=== PATIENT | male | born 1970 | race American Indian/Alaskan Native ===

== ENCOUNTER 2016-11-06 09:42 | Emergency (ER) | payer MEDICAID ==
[2016-11-06 09:57] VITALS: BP 129/88
--- NOTE | 2016-11-06 11:28 | Emergency Department Report ---
HPI - General Chief Complaint: Upper Respiratory Infection Time Seen by Provider: 11/06/16 11:08 - HPI HPI: Patient here reported flulike symptoms times one week. She said that she has had nonproductive cough lack of appetite and fever, chills achy and congestion. Patient reports sinus pain and pressure and says she's been taking over-the- counter NyQuil and TheraFlu without any relief. Post the cough is worse when she lay down at night. Generalized aching at 8 out of 10. Denies any shortness of breath or chest pain. ED Past Medical Hx - Past Medical History Previous Medical History?: Yes Hx Hypertension: Yes Hx GERD: Yes Hx Psychiatric Treatment: Yes (DEPRESSION) - Surgical History Past Surgical History?: No - Family History Family history: hypertension - Social History Smoking Status: Never Smoker Substance Use Type: None - Medications Home Medications: Home Medications Medication Instructions Recorded Confirmed Last Taken Type Amoxicillin [Amoxicillin TAB] 875 mg PO BID #14 tablet 11/06/16 Unknown Rx Brompheniramine/Pseudoephed/Dm 10 ml PO BID PRN #100 ml 11/06/16 Unknown Rx [Bromfed Dm Cough Syrup] Fluticasone [Flonase] 1 spray NS QDAY #1 bottle 11/06/16 Unknown Rx Loratadine [Claritin] 10 mg PO DAILY #10 tablet 11/06/16 Unknown Rx ED Review of Systems ROS: Stated complaint: FLU SYMPTOMS/CONGESTION/FEVER Other details as noted in HPI Comment: All other systems reviewed and negative Constitutional: chills, fever Eyes: denies: eye pain, eye discharge ENT: congestion. denies: ear pain, throat pain Respiratory: cough. denies: shortness of breath, SOB with exertion, SOB at rest , stridor, wheezing Cardiovascular: denies: chest pain, palpitations, edema, syncope Gastrointestinal: denies: abdominal pain, nausea, vomiting Musculoskeletal: arthralgia. denies: back pain Skin: denies: rash Neurological: denies: headache, weakness, numbness, paresthesias, abnormal gait , vertigo Physical Exam - Physical Exam Vital Signs: Vital Signs 11/06/16 09:54 Temperature 98.1 F Pulse Rate 78 Respiratory 18 Rate Blood Pressure 129/88 O2 Sat by Pulse 100 Oximetry General: This is a 46-year-old male well-nourished well-developed in no acute distress Physical Exam: Head: [Normocephalic atraumatic Mouth: Moist, no pharyngeal exudate or erythema. Uvula is midline and oral airway is patent. No gingival enlargement or dental tenderness. No facial swelling. No peritonsillar abscesses. Neck: Supple, no C-spine tenderness, no tracheal deviation. Nontender to palpate. no adenopathy Ears: Bilateral TMs congested without erythema .bilateral EAC without any redness swelling or drainage Eyes: Bilateral pupils equal and reactive to light, bilateral EOM intact. Bilateral sclera and conjunctiva without injection. Normal accommodation Nose: Mucosa moist, positive congestion with erythema. Positive clear drainage. maxillary and frontal sinus non-tender to palpate. Lungs: Clear to auscultate bilaterally no rhonchi wheezes or rales. Normal work of breathing. Dry cough extremity; No CCE. +2 pulses. No neurovascular compromise Cardiovascular: S1-S2, regular rate rhythm. No murmurs. Skin: clean Dry and intact no rash no lesions Psych: Normal mood and behavior ED Course Vital Signs 11/06/16 09:54 Temperature 98.1 F Pulse Rate 78 Respiratory 18 Rate Blood Pressure 129/88 O2 Sat by Pulse 100 Oximetry - Reevaluation(s) Reevaluation #1: 11/06/16 11:59 Patient stable throughout ED stay. ED Medical Decision Making - Radiology Data Radiology results: report reviewed - Medical Decision Making ED course: Here complaining of feeling feverish, chills achy in and congestion with nonproductive cough and loss of appetite. He is tried [id number] medication without any relief. Patient has been having symptoms for a week and he said it's getting worst with complaint of sinus pain. I discussed the patient is diagnosis and treatment plan. Patient treated for sinusitis and cough. Discharge from Hospital prescription for amoxicillin, Flonase, Claritin and Bromfed. Critical care attestation.: If time is entered above; I have spent that time in minutes in the direct care of this critically ill patient, excluding procedure time. ED Disposition Clinical Impression: Cough Sinusitis, acute Qualifiers: Sinusitis location: unspecified location Recurrence: not specified as recurrent Qualified Code(s): J01.90 - Acute sinusitis, unspecified Disposition: DISCHARGED TO HOME OR SELFCARE Is pt being admited?: No Does the pt Need Aspirin: No Condition: Stable Instructions: Acute Cough (ED), Sinusitis (ED) Additional Instructions: Please flush Your Nostrils with saline nasal wash Prescriptions: Amoxicillin [Amoxicillin TAB] 875 mg PO BID #14 tablet Brompheniramine/Pseudoephed/Dm [Bromfed Dm Cough Syrup] 10 ml PO BID PRN #100 ml PRN Reason: Cough Fluticasone [Flonase] 1 spray NS QDAY #1 bottle Loratadine [Claritin] 10 mg PO DAILY #10 tablet Referrals: PRIMARY CARE, [Primary Care Provider] - 3-5 Days Forms: Accompanied Note, Work/School Release Form(ED)
== END 2016-11-06 12:11 | disposition home or self-care (01) ==
LOC: ED 09:42
DX: J01.90 Acute sinusitis, unspecified (principal); R05 Cough; I10 Essential (primary) hypertension; K21.9 Gastro-esophageal reflux disease without esophagitis
CPT/HCPCS: 99282